=== PATIENT | female | born 1960 | race Caucasian/White ===

== ENCOUNTER 2023-11-01 10:04 | Outpatient (AMB) | payer OTHER, SELFPAY ==
--- NOTE | 2023-11-01 10:35 | AM.OFFWIN_ITS ---
Intake Vital Signs 11/01/23 10:49 BP 130/82 Blood Pressure Location Rt brachial Position Sitting Pulse 94 Pulse Source Pulse Oximeter Temp 98.8 F Temp Source Oral Pulse Oximetry (%) 97 Oxygen Delivery Method Room Air Intake Visit Reasons: [employer] Cough, Fever, Headache (masked) Intake Note: pt is here for c.o cough, fever, headache Patient Tobacco Use Status: Never used Tobacco Allergies No Known Allergies Allergy (Verified 11/01/23 10:35) Do you need a note to return to daycare/school/sports/work: Yes HPI HPI Comments History of Present Illness Details She presents with sinus symptoms Ongoing few days + sinus congestion, pressure, facial celia n, cough Low grade fever of 100.4 last night She has taken tylenol which helps + ear ache and ST She said chesr congestion + fatigue She took an covid test which was negative PFSH Social History Patient Tobacco Use Status: Never used Tobacco Review of Systems Const Reports body aches, Reports chills, Reports fatigue, Reports fever(s) and R eports headache(s) Eyes Denies blurry vision and Denies loss of vision ENT Reports otalgia, Reports facial pain, Reports headache(s), Reports nasal co ngestion, Reports nasal discharge, Reports sinus pressure and Reports sore throat Card Denies chest pain, Denies rapid heart rate and Denies dyspnea Resp Reports cough and Denies dyspnea Neuro Denies confusion, Reports headache(s), Denies lack of coordination, Denies focal weakness and Denies loss of vision Psych Denies confusion Endo Reports fatigue Physical Exam Vital Signs: Last Vital Signs Temp 98.8 F 11/01/23 10:49 Pulse 94 11/01/23 10:49 BP 130/82 11/01/23 10:49 Pulse Ox 97 11/01/23 10:49 Oxygen Delivery Method Room Air 11/01/23 10:49 General: Non-toxic, NAD. Speaking full sentences. Skin: Warm dry throughout Eye: EOMI HENT: Airway patent. Uvula midline. No pharyngeal erythema or edema. No SALICYLIC ACID BLENDER. Bilateral canals clear. TM non-erythematous, non-bulging. + fluid behind TMs. No TM perforation or hemotympanum noted. + frontal and maxillary sinus pressure bilaterally. Respiratory: CTA bilaterally. No wheezes, rales or rhonchi Cardiac: RRR. No murmur MSK: Full ROM extremities. Neurology: A/O . No aphasia or facial droop. Gait without abnormality Psych: Good mood and affect Const General: No confusion Orientation/consciousness: No confusion Neuro General: No confusion Assessment & Plan Assessment & Plan (1) Sinusitis: Code(s): J32.9 - Chronic sinusitis, unspecified Qualifiers: Sinusitis location: maxillary Chronicity: acute Recurrence: non- recurrent Qualified Code(s): J01.00 - Acute maxillary sinusitis, unspecified Plan Patient seen and evaluated. Lungs CTA Symptoms x 5 days; discussed most likely viral She declined covid testing but will get one OTC She was advised she is contagious and not to see others for holiday Nasal steroid and tessalon for symptoms Warm compress sinuses, fluids, rest F/U with PCP CP, SOB, palpitations go to ER. Recurrent/persistent fever headaches etc go to ED Patient gave verbal understanding and had no additional questions or concerns at time of discharge All questions answered Medications: New ipratropium bromide administer into each nostril 2 sprays intranasal BID-TID PRN 30 mL 0RF allergy symptoms J32.9 - Chronic sinusitis, unspecified benzonatate 100 mg PO BID-TID PRN 14 caps 0RF cough J32.9 - Chronic sinusitis, unspecified Coding Level of Care Code New Pt Level 3 (56497) Diagnoses Acute non-recurrent maxillary sinusitis J01.00 Sinusitis location: maxillary Chronicity: acute Recurrence: non-recurrent
[2023-11-01 10:49] VITALS: BP 130/82; PULSE 94; TEMP 37.1; O2SAT 97
== END 2023-11-01 11:09 | disposition home or self-care (01) ==
PROVIDERS: Visit Provider Physician Assistant
DX: J01.00 Acute maxillary sinusitis, unspecified (principal)
CPT/HCPCS: 99051; 99203

== ENCOUNTER 2023-11-01 15:39 | Outpatient (REF) | payer OTHER, SELFPAY ==
[2023-11-01 16:25] LABS: Influenza A PCR NEGATIVE (Negative); Influenza B PCR NEGATIVE (Negative); Resp Syncy Virus RNA Qual PCR NEGATIVE (Negative); SARS COV2 PCR INHOUSE NEGATIVE (Negative)
== END 2023-11-01 15:40 | disposition home or self-care (01) ==
LOC: HO.LNP 15:39
PROVIDERS: Visit Provider Physician Assistant
DX: J32.9 Chronic sinusitis, unspecified (principal); Z11.52 Encounter for screening for COVID-19
CPT/HCPCS: 0241U